=== PATIENT | female | born 1955 | race Caucasian/White ===

== ENCOUNTER → 2022-11-27 | Outpatient (CLI) | payer MEDICARE ==
[~2022-11-27] MED LIST: IOHEXOL-350 75 ML VIAL IV ONE
== END | disposition home or self-care (01) ==
LOC: RAH 07:46
PROVIDERS: ATTEND Internal Medicine Critical Care Medicine
DX: R10.31 Right lower quadrant pain (principal); M47.815 Spondylosis without myelopathy or radiculopathy, thoracolumbar region; I70.0 Atherosclerosis of aorta; K76.89 Other specified diseases of liver
CPT/HCPCS: 74177; Q9967

== ENCOUNTER → 2023-01-09 | Outpatient (CLI) | payer MEDICARE | END | disposition home or self-care (01) | LOC: RAH 09:44 | PROVIDERS: ATTEND Physician Assistant Medical | DX: R16.2 Hepatomegaly with splenomegaly, not elsewhere classified (principal); R10.9 Unspecified abdominal pain; M47.815 Spondylosis without myelopathy or radiculopathy, thoracolumbar region; K76.89 Other specified diseases of liver | CPT/HCPCS: 74178; Q9967 ==

== ENCOUNTER 2023-01-15 07:34 | Day surgery (SDC) | payer MEDICARE ==
[2023-01-10 16:06] VITALS: BP 143/86; PULSE 67; RESP 17
[2023-01-15] VITALS (8 sets, daily range): BP systolic 90–122; BP diastolic 45–64; PULSE 59–73; RESP 12–16
[~2023-01-15] VITALS: Ht 166.4 cm; Wt 72.9 kg
[~2023-01-15 07:34] MED LIST changes: -IOHEXOL-350 75 ML VIAL IV ONE; +MELO-108 PO; +METR-172 PO; +OMEP20TA20 PO; +PANT40TA54 PO; +ROSU10TA28 PO; +TRAZ-187 PO; +VENL75 PO; +ZOLP10TA2 PO
[2023-01-15] MEDS ORDERED: PROPOFOL 10 MG/ML 20ML VIAL IV ONE (10:28)
[2023-01-15] MEDS ORDERED: LIDOCAINE PF 100MG/5ML (2%) SYRINGE 5ML ONE (10:29)
== END 2023-01-15 11:40 | disposition home or self-care (01) ==
LOC: DAH 07:34 → ENDO 07:34
PROVIDERS: ATTEND Internal Medicine
DX: Z12.11 Encounter for screening for malignant neoplasm of colon (principal); R10.11 Right upper quadrant pain; R12 Heartburn; K76.89 Other specified diseases of liver; E78.89 Other lipoprotein metabolism disorders; E78.5 Hyperlipidemia, unspecified; Z79.899 Other long term (current) drug therapy; Z98.890 Other specified postprocedural states
CPT/HCPCS: 43239; J2001; J2704; A4620; G0121; A4215 ×2; A4223; A7002; A4222; A4221; A4663; A4216; J7030; A4606; 45378; J3490

== ENCOUNTER → 2023-08-13 | Outpatient (CLI) | payer MEDICARE | END | disposition home or self-care (01) | LOC: RAH 10:36 | PROVIDERS: ATTEND Physician Assistant Medical | DX: M25.551 Pain in right hip (principal); Z96.641 Presence of right artificial hip joint | CPT/HCPCS: 73502 ==